=== PATIENT | male | born 1940 | race Caucasian/White ===

== ENCOUNTER 2017-07-13 09:54 | Emergency (ER) | payer OTHER ==
[~2017-07-13] VITALS: Ht 157.5 cm; Wt 83.0 kg
[2017-07-13 09:58] VITALS: Ht 157.5 cm; Wt 83.0 kg
[2017-07-13] MEDS ORDERED: IBUPROFEN 200 MG TAB PO ONE (11:00)
--- NOTE | 2017-07-13 11:52 | RADRPT ---
PROCEDURE: XR Cervical Spine. CLINICAL INDICATION: Neck pain. TECHNIQUE: Three views of the cervical spine were performed. Frontal, lateral, and AP open-mouth o dontoid. The images were reviewed on a PACS workstation. COMPARISON: None. FINDINGS: There is normal stature and alignment of the vertebrae. There is no fracture. There is no lytic or blastic lesion. There is disc space narrowing at C6-7. Osteophytes are present anteriorly at C4-5, C5-6, and C6-7. The prevertebral soft tissues are normal. IMPRESSION: 1. Degenerative changes as described above. 2. No acute abnormality. RPTAT: QQ .Luiz Mai MD, Date Time Electronically viewed and signed by .Luiz Mai MD, on 07/13/2017 11:51 .R/
--- NOTE | 2017-07-13 11:55 | RADRPT ---
PROCEDURE: Left knee radiographs. CLINICAL INDICATION: Left knee pain. TECHNIQUE: Three views. Weight bearing. Frontal, lateral, and patellar view. COMPARISON: No prior studies are available for comparison. FINDINGS: There is no fracture or dislocation. The soft tissues are normal. The articular surfaces are intact. There is chondrocalcinosis. Small osteophytes are noted arising f rom the joint margins. There is no lytic or blastic lesion. There is no radiopaque foreign body. IMPRESSION: 1. Chondrocalcinosis, likely degenerative in nature. 2. Small osteophytes consistent with degenerative change. 3. Otherwise unremarkable images of the left knee. RPTAT: QQ .Luiz Mai MD, MD Date Time Electronically viewed and signed by .Luiz Mai MD, on 07/13/2017 11:54 .R/
[2017-07-13] MEDS ORDERED: TRAM50TA2 PO (12:02)
[2017-07-13] MEDS ORDERED: IBUP-1542 PO (12:02)
--- NOTE | 2017-07-13 12:05 | ERD ---
ER Documentation Chief Complaint Date/Time DATE: 07/13/17 TIME: 12:03 Chief Complaint KNEE AND NECK PAIN HPI 76-year-old male presents with left knee pain worsening over the last week. He has had pain there for several months. He also has neck pain for several years. Denies any history of recent trauma, restricted range of motion, weakness, fevers, vomiting, visual changes, chest pain or shortness of breath. ROS All systems reviewed and are negative except as per history of present illness. Medications Home Meds Active Scripts Tramadol HCl (Tramadol HCl) 50 Mg Tablet, 50 MG PO Q4 Y for PAIN, #20 TAB Prov:J LUIS TILLMAN MD 07/13/17 Ibuprofen* (Motrin*) 600 Mg Tab, 600 MG PO Q6, #20 TAB Prov:J LUIS TILLMAN MD 07/13/17 PMhx/Soc History of Surgery: No Anesthesia Reaction: No Hx Neurological Disorder: No Hx Respiratory Disorders: No Hx Cardiac Disorders: Yes (htn) Hx Psychiatric Problems: No Hx Miscellaneous Medical Probl: Yes (hypothyroidism) Hx Alcohol Use: No Hx Substance Use: No Hx Tobacco Use: No Physical Exam Vitals Vital Signs Date Time Temp Pulse Resp B/P Pulse Ox O2 Delivery O2 Flow Rate FiO2 07/13/17 09:58 97.7 71 18 118/72 97 Physical Exam Const: [Alert, [id number]. Head: Atraumatic Eyes: Normal Conjunctiva ENT: Normal External Ears, Nose and Mouth. Neck: Full range of motion..~ No meningismus. No localized tenderness in left cervical paraspinous muscles. No midline tenderness or deformities. Resp: Clear to auscultation bilaterally Cardio: Regular rate and rhythm, no murmurs Abd: Soft, non tender, non distended. Normal bowel sounds Skin: No petechiae or rashes Back: No midline or flank tenderness Ext: No cyanosis, or edema mild tenderness in the left knee without appreciable effusion, warmth, erythema, deformities. No calf swelling or Homans sign. Neur: Awake and alert Psych: Normal Mood and Affect Results 24 hrs Current Medications Medications (Trade) Dose Ordered Sig/Delroy Route PRN Reason Start Time Stop Time Status Last Admin Dose Admin Ibuprofen (Motrin) 400 mg ONCE ONCE PO 07/13/17 11:00 07/13/17 11:01 DC 07/13/17 11:14 Procedures/MDM X-ray left knee 3V Interpreted by me: Bones: No fracture Joints: No dislocation Foreign body: None patient having degenerative changes left knee without fracture dislocation X-ray C spine 3V Interpreted by me: Bones: No fracture Joints: No dislocation Foreign body: None impression have degenerative changes of the cervical spine without fracture dislocation. Patient was given ibuprofen for pain. Patient since with left knee pain and neck pain likely due to tendinitis or degenerative changes without evidence of septic arthritis, bacterial infection, deficits, fracture, dislocation, additional emergent causes of presenting complaints. We treated with tramadol ibuprofen, primary care follow-up and orthopedic evaluation and return precautions. The patient was stable with no new complaints during the ER course. Clinically, there is no current evidence to suggest meningitis, sepsis, acute abdomen, pneumonia, acute coronary syndrome, pulmonary embolism, or any other emergent condition appearing to require further evaluation or hospitalization. The patient should certainly return for any new or worsening symptoms per the aftercare instructions. They should otherwise follow-up with her primary care doctor for reevaluation this week. Departure Diagnosis: Primary Impression: Neck pain Additional Impression: Knee pain Chronicity: acute Laterality: left Qualified Code: M25.562 - Acute pain of left knee Condition: Stable Patient Instructions: Knee Pain, Uncertain Cause, Neck Pain, No Trauma Referrals: ZEESHAN ANGELO MD Additional Instructions: Facial arthritis or degenerative changes. Follow-up with primary doctor and orthopedist for further evaluation. Recheck otherwise for fevers, redness, new symptoms. J LUIS TILLMAN MD Jul 13, 2017 12:05
== END 2017-07-13 12:35 | disposition home or self-care (01) ==
LOC: FTE 09:54
DX: M54.2 Cervicalgia (principal); M25.562 Pain in left knee; E03.9 Hypothyroidism, unspecified; I10 Essential (primary) hypertension
CPT/HCPCS: 72040; 73562